=== PATIENT | female | born 1970 | race Caucasian/White ===

== ENCOUNTER → 2016-03-20 09:51 | Outpatient (CLI) | payer MEDICAID | END | disposition home or self-care (01) | LOC: D.US 09:51 | DX: R10.11 Right upper quadrant pain (principal) ==

== ENCOUNTER → 2016-04-03 08:23 | Outpatient (CLI) | payer MEDICAID | END | disposition home or self-care (01) | LOC: D.NM 04-02 08:30 | DX: R10.11 Right upper quadrant pain (principal) ==

== ENCOUNTER → 2017-05-26 21:02 | Outpatient (CLI) | payer MEDICAID | END | disposition home or self-care (01) | LOC: D.MAMMO 11:30 | DX: Z12.31 Encounter for screening mammogram for malignant neoplasm of breast (principal) ==

== ENCOUNTER → 2017-07-06 16:55 | Outpatient (CLI) | payer MEDICAID | END | disposition home or self-care (01) | LOC: D.MAMMO 09:30 | DX: R92.8 Other abnormal and inconclusive findings on diagnostic imaging of breast (principal) ==